=== PATIENT | female | born 1960 | race Caucasian/White ===

== ENCOUNTER → 2018-06-18 | Outpatient (CLI) | payer BC | END | disposition home or self-care (01) | LOC: CFH 10:41 | PROVIDERS: ATTEND Internal Medicine Cardiovascular Disease | DX: I25.9 Chronic ischemic heart disease, unspecified (principal); I10 Essential (primary) hypertension; I34.0 Nonrheumatic mitral (valve) insufficiency; I49.9 Cardiac arrhythmia, unspecified | CPT/HCPCS: 78452; 93017; 93306; A9502 ==

== ENCOUNTER → 2018-08-20 | Outpatient (CLI) | payer BC ==
[~2018-08-20] MED LIST: NONE PER PT
[2018-08-20 10:34] LABS: BASOPHILS # (AUTO) 0.02 x10^3/uL (0-0.1); BASOPHILS % (AUTO) 0 % (0-1); EOSINOPHILS # (AUTO) 0.14 x10^3/uL (0-0.4); EOSINOPHILS % (AUTO) 2 % (1-7); LYMPHOCYTES % (AUTO) 31 % (22-44); MD NO; MEAN CORPUSCULAR HEMOGLOBIN 29.9 pg (27.0-34.8); MEAN CORPUSCULAR HGB CONC 33.9 g/dL (32.4-35.8); MEAN CORPUSCULAR VOLUME 88.2 fL (80-100); MEAN PLATELET VOLUME 9.6 fL (7.4-10.4); MONOCYTES # (AUTO) 0.23 x10^3/uL (0.2-0.8); MONOCYTES % (AUTO) 4 % (2-9); NEUTROPHILS # (AUTO) 4.08 x10^3/uL (1.8-6.8); NEUTROPHILS % (AUTO) 63 % (42-75); PLATELET COUNT 234 x10^3/uL (130-400); RED BLOOD COUNT 5.11 x10^6/uL (3.82-5.3); RED CELL DISTRIBUTION WIDTH 13.6 % (9.6-15.2)
[2018-08-20 10:40] LABS: ALANINE AMINOTRANSFERASE 38 U/L (12-78); ALBUMIN 3.9 g/dL (3.4-5.0); ANION GAP 7 mmol/L (5-15); CALCIUM 8.9 mg/dL (8.5-10.1); CHLORIDE 107 mmol/L (98-107); CREATININE 0.85 mg/dL (0.55-1.02)
[2018-08-20 10:42] LABS: ALKALINE PHOSPHATASE 76 U/L (45-117); BILIRUBIN,TOTAL 0.6 mg/dL (0.2-1.0); TOTAL PROTEIN 7.8 g/dL (6.4-8.2)
== END | disposition home or self-care (01) ==
LOC: STAR 09:47
PROVIDERS: ATTEND Internal Medicine Cardiovascular Disease
DX: Z01.818 Encounter for other preprocedural examination (principal)
CPT/HCPCS: 36415; 71046; 80053; 85025

== ENCOUNTER 2018-08-25 06:30 | Day surgery (SDC) | payer BC ==
[~2018-08-25] VITALS: Ht 152.4 cm; Wt 68.2 kg
[2018-08-25 07:18] VITALS: BP 165/105
[2018-08-25] MEDS ORDERED: SODIUM CHLORIDE 0.9% 1,000 ML IV SCH (07:19)
[2018-08-25] MEDS ORDERED: ISOPROTERENOL 0.2MG/ML, 5ML ONE (07:45)
[2018-08-25] MEDS ORDERED: FENTANYL PF 100 MCG/2ML ONE (07:45)
[2018-08-25] MEDS ORDERED: MIDAZOLAM 1 MG/ML, 5ML ONE ×2 (07:45→07:47)
[2018-08-25] MEDS ORDERED: ADENOSINE 6 MG/2 ML ONE (07:45)
[2018-08-25] MEDS ORDERED: LIDOCAINE/PF 1%, 30ML ONE (07:46)
[2018-08-25] MEDS ORDERED: HEPARIN 1,000 UNITS/ML, 10ML ONE ×2 (07:46→07:47)
[2018-08-25] MEDS ORDERED: PROTAMINE SULFATE 10 MG/ML, 5ML ONE (10:53)
[2018-08-25] MEDS ORDERED: ACETAMINOPHEN 325 MG TABLET PO PRN (11:00)
== END 2018-08-25 15:52 | disposition home or self-care (01) ==
LOC: CACL 06:30
PROVIDERS: ATTEND Internal Medicine Cardiovascular Disease
DX: I47.2 Ventricular tachycardia (principal); I49.9 Cardiac arrhythmia, unspecified; I10 Essential (primary) hypertension
CPT/HCPCS: 85347; 93621; 93623; 93654; 99156; 99157; C1730; C1760; C1894; C2630; J1644; J2250; J2720; J3010; J3490; J0153

== ENCOUNTER 2020-10-27 04:42 | Inpatient (IN) | payer BC ==
[~2020-10-27] VITALS: Ht 144.8 cm; Wt 68.5 kg
--- NOTE | 2020-10-27 05:05 | NUR ---
pt ambulated to room 37, in respiratory distress, and at 84% o2 sats on ra. pt placed on cr monitor, in bed and in gown to bedside to see pt.
--- NOTE | 2020-10-27 05:26 | NUR ---
piv started, portable cxry to bedside, and pt tolerated well. remains on o2 via nc 2 lpm, and o2 sats are 92%. aware. matlab developer to bedside to take
[2020-10-27] MEDS ORDERED: ACETAMINOPHEN 325 MG TABLET PO ONE (05:30)
[2020-10-27] MEDS ORDERED: ACETAMINOPHEN 325 MG TABLET ONE (05:38)
[2020-10-27 05:45] LABS: BASOPHILS % (AUTO) 0 % (0-1); EOSINOPHILS % (AUTO) 0 % (1-7); LYMPHOCYTES % (AUTO) 12 % (22-44); MEAN CORPUSCULAR HEMOGLOBIN 30.3 pg (27.0-34.8); MEAN PLATELET VOLUME 8.8 fL (7.4-10.4); MONOCYTES % (AUTO) 5 % (2-9); NEUTROPHILS % (AUTO) 83 % (42-75); PLATELET COUNT 201 x10^3/uL (130-400); RED BLOOD COUNT 4.85 x10^6/uL (3.82-5.3)
[2020-10-27] MEDS ORDERED: DEXAMETHASONE 4 MG/ML, 1ML ONE (05:47)
[2020-10-27] MEDS ORDERED: CEFTRIAXONE PMX 1GM/50ML 50 ML ONE (05:48)
[2020-10-27 05:52] LABS: MD NO
[2020-10-27] MEDS ORDERED: DOXYCYCLINE 100 MG in DEXTROSE 5% 250 ML IV ONE (06:00)
[2020-10-27] MEDS ORDERED: CEFTRIAXONE PMX 1GM/50ML 50 ML IV ONE (06:00)
[2020-10-27] MEDS ORDERED: DEXAMETHASONE 4 MG/ML, 1ML IVPush ONE (06:00)
[2020-10-27 06:01] LABS: ALBUMIN 3.2 g/dL (3.4-5.0); ANION GAP 9 mmol/L (5-15); CALCIUM 8.6 mg/dL (8.5-10.1); CHLORIDE 99 mmol/L (98-107)
[2020-10-27 06:13] LABS: ALANINE AMINOTRANSFERASE 86 U/L (12-78); ALKALINE PHOSPHATASE 137 U/L (45-117); BILIRUBIN,TOTAL 0.5 mg/dL (0.2-1.0); CREATININE 0.81 mg/dL (0.55-1.02)
[2020-10-27 06:18] LABS: D-DIMER (DIC) 0.66 ug/mlFEU (0.00-0.52); PROTIME 10.7 Seconds (9.6-11.5)
--- NOTE | 2020-10-27 06:47 | NUR ---
report and care to ledy [facility].
--- NOTE | 2020-10-27 06:47 | NUR ---
report from geovanny. claudine
[2020-10-27] MEDS ORDERED: POLYETHYLENE GLYCOL 17 GM PACKET PO PRN (07:30)
[2020-10-27] MEDS ORDERED: ONDANSETRON 2MG/ML, 2ML IVPush PRN (07:30)
[2020-10-27] MEDS ORDERED: ONDANSETRON ODT 4 MG PO PRN (07:30)
[2020-10-27] MEDS ORDERED: ACETAMINOPHEN 325 MG TABLET PO PRN (07:30)
[2020-10-27] MEDS ORDERED: IBUPROFEN 600 MG TABLET PO PRN (07:30)
[2020-10-27] MEDS: CEFTRIAXONE PMX 1GM/50ML 50 ML IV SCH (07:30)
[2020-10-27] MEDS ORDERED: SENNA/DOCUSATE TABLET PO PRN (07:30)
[2020-10-27] MEDS: DEXAMETHASONE 4 MG/ML, 1ML IVPush SCH (07:56)
--- NOTE | 2020-10-27 07:57 | NUR ---
PT RESTING, AMBULATED TO BATHROOM. SEEN BY HOSPITALIST. WAITING FOR ADMIT BED. VSS
[2020-10-27] MEDS ORDERED: REMDESIVIR 200 MG in SODIUM CHLORIDE 0.9% 250 ML IVPB ONE (08:00)
[2020-10-27] MEDS ORDERED: THIAMINE 100MG TABLET ONE (08:08)
[2020-10-27] MEDS ORDERED: ENOXAPARIN 40 MG/0.4 ML ONE (08:08)
[2020-10-27] MEDS ORDERED: CHOLECALCIFEROL 5,000u TAB ONE (08:09)
[2020-10-27] MEDS ORDERED: ASCORBIC ACID 500 MG TABLET ONE (08:09)
[2020-10-27] MEDS: CHOLECALCIFEROL 5,000u TAB PO SCH (08:14)
[2020-10-27] MEDS: ASCORBIC ACID 500 MG TABLET PO SCH ×2 (08:14→21:10)
[2020-10-27] MEDS: THIAMINE 100MG TABLET PO SCH ×2 (08:14→21:10)
[2020-10-27] MEDS: ENOXAPARIN 40 MG/0.4 ML SQ SCH (08:15)
--- NOTE | 2020-10-27 08:23 | NUR ---
[employer] PER ORDER. PROVIDED BREAKFAT TRAY. PT SITTING BEDSIDE. VSS. STATES SHE IS FEELING BETTER
--- NOTE | 2020-10-27 10:18 | NUR ---
PT SLEEPING. CALL LIGHT IN REACH
[2020-10-27] MEDS: ZINC SULFATE 220 MG CAPSULE PO SCH (12:00)
--- NOTE | 2020-10-27 13:20 | NUR ---
PT FINISHED MEAL TRAY. RESTING, PT ON HOSPITAL BED FOR COMFORT
[2020-10-27] MEDS ORDERED: ZINC SULFATE 220 MG CAPSULE ONE (13:55)
--- NOTE | 2020-10-27 15:00 | NUR ---
PT SLEEPING, SPO2 REMAINS AT 94% ON 3l
--- NOTE | 2020-10-27 16:51 | NUR ---
REPORT TO NIKKI
[2020-10-27 17:48] VITALS: BP 130/82
[2020-10-27 18:13] VITALS: BP 130/82
[2020-10-27 19:37] VITALS: BP 124/83
[2020-10-27] MEDS: MELATONIN 5 MG TABLET PO SCH (21:10)
[2020-10-27] MEDS: DOXYCYCLINE 100MG TABLET PO SCH (21:10)
[2020-10-27] MEDS ORDERED: GUAIFENESIN/DM 100-10MG, 5ML UDC PO PRN (22:00)
[2020-10-28 00:27] VITALS: BP 138/82
[2020-10-28 06:05] LABS: BASOPHILS % (AUTO) 0 % (0-1); EOSINOPHILS % (AUTO) 0 % (1-7); LYMPHOCYTES % (AUTO) 22 % (22-44); MEAN CORPUSCULAR HEMOGLOBIN 29.4 pg (27.0-34.8); MEAN CORPUSCULAR HGB CONC 33.7 g/dL (32.4-35.8); MEAN PLATELET VOLUME 8.5 fL (7.4-10.4); MONOCYTES % (AUTO) 10 % (2-9); NEUTROPHILS % (AUTO) 68 % (42-75); PLATELET COUNT 220 x10^3/uL (130-400); RED BLOOD COUNT 4.66 x10^6/uL (3.82-5.3); RED CELL DISTRIBUTION WIDTH 13.4 % (9.6-15.2)
[2020-10-28 06:06] LABS: MD NO
[2020-10-28 06:23] LABS: CHLORIDE 102 mmol/L (98-107)
[2020-10-28 06:49] LABS: ALANINE AMINOTRANSFERASE 130 U/L (12-78); ALBUMIN 2.7 g/dL (3.4-5.0); ALKALINE PHOSPHATASE 163 U/L (45-117); ANION GAP 6 mmol/L (5-15); BILIRUBIN,TOTAL 0.4 mg/dL (0.2-1.0); CALCIUM 8.7 mg/dL (8.5-10.1); CREATININE 0.86 mg/dL (0.55-1.02); TOTAL PROTEIN 7.2 g/dL (6.4-8.2)
[2020-10-28 07:33] VITALS: BP 119/81
[2020-10-28] MEDS: CEFTRIAXONE PMX 1GM/50ML 50 ML IV SCH (07:50)
[2020-10-28] MEDS: THIAMINE 100MG TABLET PO SCH ×2 (07:50→21:00)
[2020-10-28] MEDS: DEXAMETHASONE 4 MG/ML, 1ML IVPush SCH (07:50)
[2020-10-28] MEDS: ENOXAPARIN 40 MG/0.4 ML SQ SCH (07:51)
[2020-10-28] MEDS: ASCORBIC ACID 500 MG TABLET PO SCH ×2 (07:51→21:00)
[2020-10-28] MEDS: DOXYCYCLINE 100MG TABLET PO SCH ×2 (07:51→21:00)
[2020-10-28] MEDS: CHOLECALCIFEROL 5,000u TAB PO SCH (07:51)
[2020-10-28] MEDS: REMDESIVIR 100 MG in SODIUM CHLORIDE 0.9% 250 ML IVPB SCH (09:07)
[2020-10-28] MEDS: ZINC SULFATE 220 MG CAPSULE PO SCH (11:10)
[2020-10-28 14:27] VITALS: BP 122/79
[2020-10-28] MEDS: INSULIN LISPRO 100 UNITS/ML, PEN SQ-INSULIN SCH ×2 (16:22→21:50)
[2020-10-28 19:49] VITALS: BP 144/83
[2020-10-28] MEDS: MELATONIN 5 MG TABLET PO SCH (21:00)
[2020-10-29 00:53] VITALS: BP 150/85
[2020-10-29 06:02] LABS: BASOPHILS % (AUTO) 0 % (0-1); EOSINOPHILS % (AUTO) 0 % (1-7); LYMPHOCYTES % (AUTO) 22 % (22-44); MEAN CORPUSCULAR HEMOGLOBIN 29.7 pg (27.0-34.8); MEAN CORPUSCULAR HGB CONC 34.2 g/dL (32.4-35.8); MEAN PLATELET VOLUME 8.5 fL (7.4-10.4); MONOCYTES % (AUTO) 10 % (2-9); NEUTROPHILS % (AUTO) 68 % (42-75); PLATELET COUNT 281 x10^3/uL (130-400); RED BLOOD COUNT 4.81 x10^6/uL (3.82-5.3); RED CELL DISTRIBUTION WIDTH 13.3 % (9.6-15.2)
[2020-10-29 06:03] LABS: HCT (SEDRATE) 41.3 % (34.6-47.8)
[2020-10-29 06:07] LABS: ALBUMIN 2.9 g/dL (3.4-5.0); ANION GAP 8 mmol/L (5-15); CALCIUM 8.6 mg/dL (8.5-10.1); CHLORIDE 103 mmol/L (98-107)
[2020-10-29 06:08] LABS: MD NO
[2020-10-29 06:28] LABS: ALANINE AMINOTRANSFERASE 112 U/L (12-78); ALKALINE PHOSPHATASE 154 U/L (45-117); BILIRUBIN,TOTAL 0.4 mg/dL (0.2-1.0); CREATININE 0.73 mg/dL (0.55-1.02); TOTAL PROTEIN 7.3 g/dL (6.4-8.2)
[2020-10-29 07:09] VITALS: BP 143/87
[2020-10-29] MEDS: CEFTRIAXONE PMX 1GM/50ML 50 ML IV SCH (07:53)
[2020-10-29] MEDS: INSULIN LISPRO 100 UNITS/ML, PEN SQ-INSULIN SCH ×4 (07:53→21:04)
[2020-10-29] MEDS: ENOXAPARIN 40 MG/0.4 ML SQ SCH ×2 (07:54→21:01)
[2020-10-29] MEDS: DOXYCYCLINE 100MG TABLET PO SCH ×2 (09:18→20:59)
[2020-10-29] MEDS: DEXAMETHASONE 4 MG/ML, 1ML IVPush SCH (09:18)
[2020-10-29] MEDS: REMDESIVIR 100 MG in SODIUM CHLORIDE 0.9% 250 ML IVPB SCH (09:18)
[2020-10-29] MEDS: THIAMINE 100MG TABLET PO SCH ×2 (09:18→20:59)
[2020-10-29] MEDS: ASCORBIC ACID 500 MG TABLET PO SCH ×2 (09:18→20:59)
[2020-10-29] MEDS: CHOLECALCIFEROL 5,000u TAB PO SCH (09:19)
[2020-10-29] MEDS ORDERED: ACETAMINOPHEN 325 MG TABLET PO PRN (10:00)
[2020-10-29] MEDS: SODIUM CHLORIDE 0.9% 1,000 ML IV SCH ×2 (11:05→11:06)
[2020-10-29 12:24] VITALS: BP 155/91
[2020-10-29] MEDS: ZINC SULFATE 220 MG CAPSULE PO SCH (12:25)
[2020-10-29] MEDS: BENZONATATE 100 MG CAPSULE PO SCH ×2 (16:39→21:00)
[2020-10-29 19:58] VITALS: BP 146/80
[2020-10-29] MEDS: MELATONIN 5 MG TABLET PO SCH (21:00)
[2020-10-30] VITALS: BP 137/79
[2020-10-30 01:37] VITALS: BP 153/88
[2020-10-30 06:53] VITALS: BP 132/82
[2020-10-30] MEDS: CEFTRIAXONE PMX 1GM/50ML 50 ML IV SCH (07:32)
[2020-10-30] MEDS: INSULIN LISPRO 100 UNITS/ML, PEN SQ-INSULIN SCH ×4 (07:33→21:06)
[2020-10-30] MEDS: ENOXAPARIN 40 MG/0.4 ML SQ SCH ×2 (08:30→21:04)
[2020-10-30] MEDS: DEXAMETHASONE 4 MG/ML, 1ML IVPush SCH (08:30)
[2020-10-30] MEDS: CHOLECALCIFEROL 5,000u TAB PO SCH (08:30)
[2020-10-30] MEDS: DOXYCYCLINE 100MG TABLET PO SCH ×2 (08:30→21:03)
[2020-10-30] MEDS: THIAMINE 100MG TABLET PO SCH ×2 (08:31→21:03)
[2020-10-30] MEDS: BENZONATATE 100 MG CAPSULE PO SCH ×3 (08:31→21:03)
[2020-10-30] MEDS: ASCORBIC ACID 500 MG TABLET PO SCH ×2 (08:31→21:03)
[2020-10-30] MEDS: REMDESIVIR 100 MG in SODIUM CHLORIDE 0.9% 250 ML IVPB SCH (09:29)
[2020-10-30] MEDS: SODIUM CHLORIDE 0.9% 1,000 ML IV SCH (11:25)
[2020-10-30] MEDS: ZINC SULFATE 220 MG CAPSULE PO SCH (11:25)
[2020-10-30 12:38] VITALS: BP 145/89
[2020-10-30] MEDS: metFORMIN 850 MG TABLET PO SCH (16:23)
[2020-10-30 20:41] VITALS: BP 142/88
[2020-10-30] MEDS: MELATONIN 5 MG TABLET PO SCH (21:04)
[2020-10-31 00:01] VITALS: BP 148/80
[2020-10-31 06:23] LABS: ALBUMIN 2.8 g/dL (3.4-5.0); ANION GAP 9 mmol/L (5-15); CALCIUM 8.5 mg/dL (8.5-10.1); CHLORIDE 108 mmol/L (98-107)
[2020-10-31 06:37] LABS: ALANINE AMINOTRANSFERASE 72 U/L (12-78); ALKALINE PHOSPHATASE 106 U/L (45-117); BILIRUBIN,TOTAL 0.5 mg/dL (0.2-1.0); CREATININE 0.65 mg/dL (0.55-1.02); TOTAL PROTEIN 6.6 g/dL (6.4-8.2)
[2020-10-31] MEDS: CEFTRIAXONE PMX 1GM/50ML 50 ML IV SCH (07:28)
[2020-10-31] MEDS: INSULIN LISPRO 100 UNITS/ML, PEN SQ-INSULIN SCH ×4 (07:28→20:23)
[2020-10-31 07:31] VITALS: BP 136/85
[2020-10-31] MEDS ORDERED: POTASSIUM CHLORIDE 20 MEQ TAB.ER.PRT PO ONE (08:00)
[2020-10-31] MEDS: DOXYCYCLINE 100MG TABLET PO SCH ×2 (08:41→20:22)
[2020-10-31] MEDS: DEXAMETHASONE 4 MG/ML, 1ML IVPush SCH (08:42)
[2020-10-31] MEDS: ASCORBIC ACID 500 MG TABLET PO SCH ×2 (08:42→20:22)
[2020-10-31] MEDS: metFORMIN 850 MG TABLET PO SCH ×2 (08:42→16:21)
[2020-10-31] MEDS: THIAMINE 100MG TABLET PO SCH ×2 (08:42→20:22)
[2020-10-31] MEDS: BENZONATATE 100 MG CAPSULE PO SCH ×3 (08:42→20:22)
[2020-10-31] MEDS: ENOXAPARIN 40 MG/0.4 ML SQ SCH ×2 (08:42→20:19)
[2020-10-31] MEDS: CHOLECALCIFEROL 5,000u TAB PO SCH (08:42)
[2020-10-31] MEDS: REMDESIVIR 100 MG in SODIUM CHLORIDE 0.9% 250 ML IVPB SCH (08:43)
[2020-10-31] MEDS: ZINC SULFATE 220 MG CAPSULE PO SCH (11:37)
[2020-10-31] MEDS: SODIUM CHLORIDE 0.9% 1,000 ML IV SCH (11:38)
[2020-10-31 12:17] VITALS: BP 144/94
[2020-10-31 19:28] VITALS: BP 144/84
[2020-10-31] MEDS: MELATONIN 5 MG TABLET PO SCH (20:22)
[2020-11-01 00:05] VITALS: BP 118/67
[2020-11-01 06:53] LABS: ANION GAP 9 mmol/L (5-15); CALCIUM 8.5 mg/dL (8.5-10.1); CHLORIDE 108 mmol/L (98-107); CREATININE 0.61 mg/dL (0.55-1.02)
[2020-11-01] MEDS: INSULIN LISPRO 100 UNITS/ML, PEN SQ-INSULIN SCH ×4 (07:00→21:00)
[2020-11-01] MEDS ORDERED: ASCORBIC ACID 250 MG TAB ONE (08:51)
[2020-11-01] MEDS: CEFTRIAXONE PMX 1GM/50ML 50 ML IV SCH (09:08)
[2020-11-01] MEDS: THIAMINE 100MG TABLET PO SCH ×2 (09:09→21:38)
[2020-11-01] MEDS: metFORMIN 850 MG TABLET PO SCH ×2 (09:09→18:15)
[2020-11-01] MEDS: BENZONATATE 100 MG CAPSULE PO SCH ×3 (09:09→21:37)
[2020-11-01] MEDS: ASCORBIC ACID 500 MG TABLET PO SCH ×2 (09:09→21:37)
[2020-11-01] MEDS: DOXYCYCLINE 100MG TABLET PO SCH ×2 (09:09→21:38)
[2020-11-01] MEDS: CHOLECALCIFEROL 5,000u TAB PO SCH (09:09)
[2020-11-01] MEDS: DEXAMETHASONE 4 MG/ML, 1ML IVPush SCH (09:11)
[2020-11-01] MEDS: ENOXAPARIN 40 MG/0.4 ML SQ SCH ×2 (09:11→18:16)
[2020-11-01 09:59] VITALS: BP 107/67
[2020-11-01] MEDS: SODIUM CHLORIDE 0.9% 1,000 ML IV SCH (11:04)
[2020-11-01] MEDS: ZINC SULFATE 220 MG CAPSULE PO SCH (11:04)
[2020-11-01 15:44] VITALS: BP 115/76
[2020-11-01 20:09] VITALS: BP 120/81
[2020-11-01] MEDS: MELATONIN 5 MG TABLET PO SCH (21:38)
[2020-11-02 00:47] VITALS: BP 115/75
[2020-11-02] MEDS: INSULIN LISPRO 100 UNITS/ML, PEN SQ-INSULIN SCH ×4 (07:00→20:37)
[2020-11-02 08:05] VITALS: BP 96/66
[2020-11-02] MEDS: ASCORBIC ACID 500 MG TABLET PO SCH ×2 (10:14→20:29)
[2020-11-02] MEDS: CHOLECALCIFEROL 5,000u TAB PO SCH (10:15)
[2020-11-02] MEDS: BENZONATATE 100 MG CAPSULE PO SCH ×3 (10:15→20:30)
[2020-11-02] MEDS: DOXYCYCLINE 100MG TABLET PO SCH ×2 (10:15→20:29)
[2020-11-02] MEDS: DEXAMETHASONE 4 MG/ML, 1ML IVPush SCH (10:15)
[2020-11-02] MEDS: ZINC SULFATE 220 MG CAPSULE PO SCH (10:15)
[2020-11-02] MEDS: metFORMIN 850 MG TABLET PO SCH ×2 (10:15→18:05)
[2020-11-02] MEDS: THIAMINE 100MG TABLET PO SCH ×2 (10:15→20:30)
[2020-11-02] MEDS: ENOXAPARIN 40 MG/0.4 ML SQ SCH ×2 (10:16→20:29)
[2020-11-02] MEDS: SODIUM CHLORIDE 0.9% 1,000 ML IV SCH (14:00)
[2020-11-02 14:11] VITALS: BP 124/83
[2020-11-02 20:15] VITALS: BP 118/78
[2020-11-02] MEDS: MELATONIN 5 MG TABLET PO SCH (20:29)
[2020-11-03 00:40] VITALS: BP 120/77
[2020-11-03] MEDS: SODIUM CHLORIDE 0.9% 1,000 ML IV SCH ×2 (04:43→21:41)
[2020-11-03] MEDS: INSULIN LISPRO 100 UNITS/ML, PEN SQ-INSULIN SCH ×4 (07:00→20:02)
[2020-11-03] MEDS: ENOXAPARIN 40 MG/0.4 ML SQ SCH ×2 (08:00→20:00)
[2020-11-03] MEDS: BENZONATATE 100 MG CAPSULE PO SCH ×3 (08:10→20:15)
[2020-11-03] MEDS: CHOLECALCIFEROL 5,000u TAB PO SCH (08:10)
[2020-11-03] MEDS: ASCORBIC ACID 500 MG TABLET PO SCH ×2 (08:10→20:14)
[2020-11-03] MEDS: metFORMIN 850 MG TABLET PO SCH ×2 (08:10→16:39)
[2020-11-03] MEDS: DEXAMETHASONE 4 MG/ML, 1ML IVPush SCH (08:10)
[2020-11-03] MEDS: THIAMINE 100MG TABLET PO SCH ×2 (08:11→20:14)
[2020-11-03 08:21] LABS: CALCIUM 8.4 mg/dL (8.5-10.1); CHLORIDE 109 mmol/L (98-107)
[2020-11-03 08:25] LABS: ANION GAP 10 mmol/L (5-15); CREATININE 0.63 mg/dL (0.55-1.02)
[2020-11-03 08:51] VITALS: BP 126/80
[2020-11-03] MEDS: ZINC SULFATE 220 MG CAPSULE PO SCH (11:18)
[2020-11-03 13:35] VITALS: BP 116/76
[2020-11-03 18:53] VITALS: BP 138/83
[2020-11-03] MEDS: MELATONIN 5 MG TABLET PO SCH (20:15)
[2020-11-04 02:05] VITALS: BP 123/82
[2020-11-04 06:39] LABS: C-REACTIVE PROTEIN, QUANT 0.99 mg/dL (0.02-0.49)
[2020-11-04] MEDS: INSULIN LISPRO 100 UNITS/ML, PEN SQ-INSULIN SCH ×4 (07:00→21:30)
[2020-11-04 07:31] VITALS: BP 114/74
[2020-11-04] MEDS: ENOXAPARIN 40 MG/0.4 ML SQ SCH (07:46)
[2020-11-04] MEDS: metFORMIN 850 MG TABLET PO SCH ×2 (07:47→16:46)
[2020-11-04] MEDS: CHOLECALCIFEROL 5,000u TAB PO SCH (07:47)
[2020-11-04] MEDS: ASCORBIC ACID 500 MG TABLET PO SCH ×2 (07:48→21:30)
[2020-11-04] MEDS: THIAMINE 100MG TABLET PO SCH ×2 (07:48→21:30)
[2020-11-04] MEDS: BENZONATATE 100 MG CAPSULE PO SCH ×3 (07:48→21:30)
[2020-11-04] MEDS ORDERED: DEXAMETHASONE 4 MG TABLET PO SCH (09:00)
[2020-11-04] MEDS: ZINC SULFATE 220 MG CAPSULE PO SCH (11:38)
[2020-11-04] MEDS: SODIUM CHLORIDE 0.9% 1,000 ML IV SCH (14:07)
[2020-11-04 14:16] VITALS: BP 124/82
[2020-11-04 21:30] VITALS: BP 125/72
[2020-11-04] MEDS: MELATONIN 5 MG TABLET PO SCH (21:30)
[2020-11-05 00:42] VITALS: BP 132/80
[2020-11-05] MEDS: SODIUM CHLORIDE 0.9% 1,000 ML IV SCH (05:54)
[2020-11-05] MEDS: INSULIN LISPRO 100 UNITS/ML, PEN SQ-INSULIN SCH ×3 (07:00→16:18)
[2020-11-05 07:13] VITALS: BP 124/83
[2020-11-05] MEDS: metFORMIN 850 MG TABLET PO SCH ×2 (08:08→16:16)
[2020-11-05] MEDS: CHOLECALCIFEROL 5,000u TAB PO SCH (08:08)
[2020-11-05] MEDS: THIAMINE 100MG TABLET PO SCH (08:08)
[2020-11-05] MEDS: BENZONATATE 100 MG CAPSULE PO SCH ×2 (08:08→16:16)
[2020-11-05] MEDS: ENOXAPARIN 40 MG/0.4 ML SQ SCH (08:09)
[2020-11-05] MEDS: ASCORBIC ACID 500 MG TABLET PO SCH (08:09)
[2020-11-05] MEDS ORDERED: DEXAMETHASONE 1 MG TABLET PO SCH (09:00)
[2020-11-05] MEDS ORDERED: DEXA1TAB5 PO (09:52)
[2020-11-05] MEDS ORDERED: [UNRECOGNIZED DRUG - CODE] (09:52)
[2020-11-05] MEDS ORDERED: BENZ-17 PO (09:52)
[2020-11-05] MEDS ORDERED: INSU100I11 SQ-INSULIN (09:52)
[2020-11-05] MEDS ORDERED: METF850T PO (09:52)
[2020-11-05] MEDS: ZINC SULFATE 220 MG CAPSULE PO SCH (12:00)
[2020-11-05 12:09] VITALS: BP 134/87
== END 2020-11-05 19:45 | disposition home health service (06) | DRG 871 ==
LOC: ED 06:14 → EDIP 07:31 → 4EST 17:37
PROVIDERS: ADMIT Family Medicine; ATTEND Internal Medicine
PROC: XW033E5 Introduction of Remdesivir Anti-infective into Peripheral Vein, Percutaneous Approach, New Technology Group 5 (ICD-10-PCS; principal; 2020-10-29)
DX: A41.9 Sepsis, unspecified organism (principal); J12.82 Pneumonia due to coronavirus disease 2019; J96.01 Acute respiratory failure with hypoxia; U07.1 COVID-19; E87.1 Hypo-osmolality and hyponatremia; E87.3 Alkalosis; E11.65 Type 2 diabetes mellitus with hyperglycemia; E66.9 Obesity, unspecified; Z68.32 Body mass index [BMI] 32.0-32.9, adult; E87.6 Hypokalemia
CPT/HCPCS: 36415; 36600; 71045; 80048; 80053; 82728; 82803; 82962; 83036; 83605; 83615; 83735; 84145; 85025; 85049; 85379; 85384; 85610; 85651; 85730; 86140; 87040; 93005; 96365; 96375; G0378; J0696; J1100; J1650; J7060; J1815; J7030; J7050